=== PATIENT | male | born 1965 | race African-American/Black ===

== ENCOUNTER → 2016-11-12 | Outpatient (CLI) | payer OTHER ==
[~2016-11-12] MED LIST: ARTISOL2 OU; BUME1TA PO; BUPR150T3 PO; CARD180C4 PO; CARV25TA PO; COLC1TAB13 PO; GLUC750T2 PO; LIPI80TA PO; MEPR750S PO; OMEP20CA3 PO; POTA10CA PO; PRAD150C PO; PRED5TA PO; SERT-155 PO; TRAZ-136 PO; ZOLO100T PO
--- NOTE | 2016-11-12 08:15 | REP ---
Clinical: Right upper quadrant abdominal pain. Technique: Barclay scale ultrasound using curved array transducer. Findings: The liver is upper limits of normal in size without obvious focal hepatic lesion identified. The pancreas is incompletely evaluated due to interposed bowel gas but visualized portions appear normal. The gallbladder is normal without gallstones, wall thickening or pericholecystic fluid. No biliary ductal dilatation is appreciated, and the common bile duct measures 6.4 mm diameter. The right kidney measures 10.7 x 7.5 x 4.7 cm without hydronephrosis, but small intrarenal calculi cannot be excluded. No ascites. Visualized portions of the abdominal aorta normal. Impression: 1. Liver appears upper limits of normal in size without focal hepatic lesion identified. 2. Cannot exclude nonobstructing right renal calculi. Signed by Bladimir Watts MD 11/12/2016 08:06 A
--- NOTE | 2016-11-12 11:00 | REP ---
HIDA SCAN WITH GALLBLADDER EJECTION FRACTION: Following the intravenous administration of 6.6 millicuries technetium 99m mebrofenin, multiple images of the right upper quadrant are performed every 5 minutes for a period of 1 hour. The gallbladder is visualized at 20 minutes post injection. There is biliary to bowel transit by 15 minutes post injection. There is no scintigraphic evidence of cholecystitis. 8 ounces of Ensure Enlive was ingested and further imaging performed for 1 hour. Gallbladder activity is measured. Gallbladder ejection fraction is calculated to be 41%. This is normal, as a normal ejection fraction is greater than 35%. IMPRESSION: Normal gallbladder ejection fraction. Signed by Mane Barclay MD 11/12/2016 07:50 P
== END ==
LOC: M RAD 07:27
PROVIDERS: ATTEND Physician Assistant Medical
DX: R10.11 Right upper quadrant pain (principal)

== ENCOUNTER 2016-11-20 08:43 | Outpatient (CLI) | payer OTHER ==
[~2016-11-20] VITALS: Ht 185.4 cm; Wt 104.3 kg
[2016-11-20] MEDS ORDERED: NS 1,000 ML IV ONE (09:15)
[2016-11-20] MEDS ORDERED: LIDOCAINE 2% INJ 100 MG/5 ML SDV (FOR ANES.) As Ordered ONE (10:06)
[2016-11-20] MEDS ORDERED: PROPOFOL 200 MG/20 ML VIAL As Ordered ONE (10:06)
--- NOTE | 2016-11-20 10:24 | ROOR ---
Patient Name: Artur Coyne Procedure Date: 11/20/2016 10:07 AM Date of : 1965 Age: 51 Room: [facility] Gender: Male Note Status: Finalized Procedure: Upper GI endoscopy Indications: Abdominal pain Providers: Nando MONTELONGO MD Referring MD: WALE ECHEVARRIA MD Requesting Provider: Medicines: Monitored Anesthesia Care Complications: No immediate complications. Procedure: Pre-Anesthesia Assessment: - The heart rate, respiratory rate, oxygen saturations, blood pressure, adequacy of pulmonary ventilation, and response to care were monitored throughout the procedure. The Endoscope was introduced through the mouth, and advanced to the second part of duodenum. The upper GI endoscopy was accomplished without difficulty. The patient tolerated the procedure well. Findings: Non-severe esophagitis was found in the lower third of the esophagus. Biopsies were taken with a cold forceps for histology. Minimal inflammation was found in the entire examined stomach. Biopsies were taken with a cold forceps for Helicobacter pylori testing. The examined duodenum was normal. Impression: - Mild reflux esophagitis. Biopsied. - Mild Gastritis. Biopsied. - Small Hiatal hernia - Normal examined duodenum. Recommendation: - Use Prilosec (omeprazole) 20 mg PO daily. - (the script was sent to your pharmacy on file) - Telephone endoscopist for pathology results in 2 weeks. Nando Montelongo MD Nando MONTELONGO MD 11/20/2016 10:24:34 AM This report has been signed electronically. Number of Addenda: 0 Note Initiated On: 11/20/2016 10:07 AM Estimated Blood Loss: Estimated blood loss: none.
--- NOTE | 2016-11-20 10:43 | ROOR ---
Patient Name: Artur Coyne Procedure Date: 11/20/2016 10:08 AM Date of : 1965 Age: 51 Room: [facility] Gender: Male Note Status: Finalized Procedure: Colonoscopy Indications: Generalized abdominal pain Providers: Nando MONTELONGO MD Referring MD: WALE ECHEVARRIA MD Requesting Provider: Medicines: Monitored Anesthesia Care Complications: No immediate complications. Procedure: Pre-Anesthesia Assessment: - The heart rate, respiratory rate, oxygen saturations, blood pressure, adequacy of pulmonary ventilation, and response to care were monitored throughout the procedure. The Colonoscope was introduced through the anus and advanced to the terminal ileum, with identification of the appendiceal orifice and IC valve. The colonoscopy was performed without difficulty. The patient tolerated the procedure well. The quality of the bowel preparation was good. Findings: The perianal and digital rectal examinations were normal. A 3 mm polyp was found in the cecum. The polyp was sessile. The polyp was removed with a jumbo cold forceps. Resection and retrieval were complete. Internal hemorrhoids were found during retroflexion. The hemorrhoids were moderate. The exam was otherwise without abnormality on direct and retroflexion views. The terminal ileum appeared normal. Impression: - One 3 mm polyp in the cecum, removed with a jumbo cold forceps. Resected and retrieved. - Small to moderate Internal hemorrhoids. - The colon examination was otherwise normal on direct and retroflexion views. - The examined portion of the ileum was normal. Recommendation: - Use fiber, for example Citrucel, Fibercon, Konsyl or Metamucil. - Continue present medications. - Telephone endoscopist for pathology results in 2 weeks. - If the pathology report reveals adenomatous tissue, then repeat the colonoscopy for surveillance in 5 years. - Resume Pradaxa (dabigatran) at prior dose today. Nando Montelongo MD Nando MONTELONGO MD 11/20/2016 10:42:31 AM This report has been signed electronically. Number of Addenda: 0 Note Initiated On: 11/20/2016 10:08 AM Estimated Blood Loss: Estimated blood loss: none.
[2016-11-20 11:00] VITALS: BP 115/81
== END 2016-11-20 11:15 | disposition home or self-care (01) ==
LOC: M OPP 08:43
PROVIDERS: ATTEND Internal Medicine Gastroenterology
DX: R10.84 Generalized abdominal pain (principal); D12.0 Benign neoplasm of cecum; K64.8 Other hemorrhoids; K21.0 Gastro-esophageal reflux disease with esophagitis; K29.70 Gastritis, unspecified, without bleeding; K59.00 Constipation, unspecified; I48.91 Unspecified atrial fibrillation; Z95.810 Presence of automatic (implantable) cardiac defibrillator; I10 Essential (primary) hypertension; E78.5 Hyperlipidemia, unspecified; R12 Heartburn; M19.90 Unspecified osteoarthritis, unspecified site; M54.9 Dorsalgia, unspecified; R51 Headache; R06.02 Shortness of breath; G47.30 Sleep apnea, unspecified; D86.9 Sarcoidosis, unspecified; Z88.8 Allergy status to other drugs, medicaments and biological substances; Z79.899 Other long term (current) drug therapy; Z79.52 Long term (current) use of systemic steroids

== ENCOUNTER → 2017-09-01 | Outpatient (CLI) | payer OTHER | LOC: M CARPUL 09:39 | DX: D86.89 Sarcoidosis of other sites (principal); I50.9 Heart failure, unspecified; I34.0 Nonrheumatic mitral (valve) insufficiency | CPT/HCPCS: 93306 ==

== ENCOUNTER 2017-11-20 18:55 | Emergency (ER) | payer OTHER | END 2017-11-20 20:55 | disposition home or self-care (01) | LOC: M ED 18:55 | DX: S63.92XA Sprain of unspecified part of left wrist and hand, initial encounter (principal); W11.XXXA Fall on and from ladder, initial encounter; Y92.009 Unspecified place in unspecified non-institutional (private) residence as the place of occurrence of the external cause; Z88.8 Allergy status to other drugs, medicaments and biological substances; Z79.899 Other long term (current) drug therapy; Z98.890 Other specified postprocedural states | CPT/HCPCS: 73110 ==

== ENCOUNTER 2017-12-30 11:18 | Emergency (ER) | payer OTHER, SELFPAY ==
[~2017-12-30] VITALS: Ht 185.4 cm; Wt 96.0 kg
[~2017-12-30 11:18] MED LIST changes: -BUME1TA PO; +BUME1TAB3 PO; +GLUC750T13 PO; -GLUC750T2 PO; +KLOR10TA76 PO; -POTA10CA PO; -TRAZ-136 PO; +TRAZ-163 PO; +ZOLP10TA2
[2017-12-30] MEDS ORDERED: ALLO10TA PO (11:34)
[2017-12-30 12:14] LABS: BASO # 0.1 10^3/uL (0.0-0.2); BASO % 0.4 % (0.0-1.0); EOS # 0.1 10^3/uL (0.0-0.50); EOS % 0.6 % (0.0-3.0); HEMATOCRIT 39.5 % (42.0-52.0); HEMOGLOBIN 12.8 g/dl (13.5-17.5); LYMPH # 2.2 10^3/uL (1.5-4.5); LYMPH % 14.3 % (24.0-44.0); MEAN CORPUSCULAR HEMOGLOBIN 28.1 pg (27.0-33.0); MEAN CORPUSCULAR HGB CONC 32.4 g/dl (32.0-36.5); MEAN CORPUSCULAR VOLUME 86.8 fl (80.0-96.0); MONO # 1.7 10^3/uL (0.0-0.8); MONO % 10.6 % (0.0-5.0); NEUTROPHILS # 11.5 10^3/uL (1.8-7.7); NEUTROPHILS % 73.6 % (36.0-66.0); PLATELET COUNT, AUTOMATED 166 10^3/uL (150-450); RED BLOOD COUNT 4.55 10^6/uL (4.30-6.10); WHITE BLOOD COUNT 15.6 10^3/uL (4.0-10.0)
--- NOTE | 2017-12-30 12:23 | REP ---
Right elbow series: Four views. History: Swelling. Findings: Four views of the right elbow demonstrate marked brad olecranon soft tissue swelling consistent with bursitis. There is some olecranon spurring. There is no evidence of joint effusion. No fracture or bony erosive change. Impression: Marked swelling about the olecranon. Question olecranon bursitis. Mild olecranon spurring. No other bony abnormality. No evidence of joint effusion. Electronically Signed by Brady Kaur MD 12/30/2017 12:14 P
[2017-12-30 12:48] LABS: BLOOD UREA NITROGEN 13 MG/DL (7-18); C REACTIVE PROTEIN QUANTITATIV 7.24 MG/DL (0.00-0.30); CALCIUM LEVEL 8.7 MG/DL (8.5-10.1); CARBON DIOXIDE LEVEL 29 MEQ/L (21-32); CHLORIDE LEVEL 105 MEQ/L (98-107); CREATININE FOR GFR 1.16 MG/DL (0.70-1.30); GLOMERULAR FILTRATION RATE > 60.0 (>56); GLUCOSE, FASTING 93 MG/DL (70-100); POTASSIUM SERUM 3.8 MEQ/L (3.5-5.1); SODIUM LEVEL 141 MEQ/L (136-145); URIC ACID 3.6 MG/DL (3.5-7.2)
[2017-12-30 13:15] LABS: ERYTHROCYTE SEDIMENTATION RATE 55 mm/hr (0-20)
[2017-12-30] MEDS ORDERED: KEFL500C17 PO (13:24)
[2017-12-30] MEDS ORDERED: CEPHALEXIN 500 MG CAP PO ONE (13:30)
[2017-12-30] MEDS ORDERED: NORCOTAB PO (13:30)
[2017-12-30 14:15] VITALS: BP 122/85
== END 2017-12-30 14:16 | disposition home or self-care (01) ==
LOC: M ED 11:18
DX: M25.721 Osteophyte, right elbow (principal); M70.20 Olecranon bursitis, unspecified elbow; Z79.899 Other long term (current) drug therapy; Z88.8 Allergy status to other drugs, medicaments and biological substances

== ENCOUNTER → 2019-07-26 | Outpatient (CLI) | payer OTHER ==
[~2019-07-26] MED LIST changes: +ALLO10TA PO; +HYDR-3715 PO; +KEFL500C17 PO; +OMEP1CAP73 PO; -OMEP20CA3 PO; -PRAD150C PO; +PRAD150C6 PO; -SERT-155 PO; +SERT50TA29 PO; -TRAZ-163 PO; +TRAZ-257 PO
--- NOTE | 2019-07-27 08:41 | REP ---
Clinical: History of chronic medical renal disease. Technique: Real time petty scale and color evaluation using curved array transducer. Findings: The bilateral kidneys are normal in contour, size, echogenicity, and reniform shape. Normal general renal vasculature noted bilaterally. No hydronephrosis, nephrolithiasis, cystic or renal mass lesion. Right kidney measures 8.8 x 5.9 x 4.0 cm. Left kidney measures 10.5 x 6.5 x 5.1 cm. Bladder appears grossly unremarkable. Impression: Normal renal ultrasound.
== END ==
LOC: M WHC 13:07
PROVIDERS: ATTEND Internal Medicine
DX: N18.9 Chronic kidney disease, unspecified (principal)

== ENCOUNTER → 2020-07-04 | Outpatient (CLI) | payer OTHER ==
[~2020-07-04] MED LIST changes: +BUPR150T12 PO; -BUPR150T3 PO; +COLC0.6T47 PO; -COLC1TAB13 PO
--- NOTE | 2020-07-08 09:55 | ECHO ---
DATE OF PROCEDURE: 07/04/2020 Age: 55 Gender: Male REFERRING PHYSICIAN: John Elizondo M.D. PATIENT LOCATION: Outpatient. REASON FOR STUDY: Sarcoidosis. 2D MEASUREMENTS: IVS 1.1 cm LV 4.6 cm LVPW 1.1 cm LA 4.0 cm Aorta 3.5 cm DOPPLER MEASUREMENT Peak velocity across the LVOT 0.85 m/s Mitral E 0.42 Mitral A 0.2 with a ratio of 1.6 2D COMMENTS: 1. Normal left ventricular size, wall thickness, and normal global left ventricular systolic function. The estimated left ventricular systolic ejection fraction is 60% to 65%. 2. Borderline enlarged left atrium. Normal right atrium and right ventricle. 3. The atrial septum appeared to be normal without evidence of defect or shunt. 4. Normal aortic root. 5. No pericardial effusion seen. 6. Minimally calcified aortic valve with normal leaflet excursion. Mildly calcified mitral annulus with normal anterior mitral valve leaflet motion. Normal tricuspid valve and pulmonic valve. The proximal pulmonary artery branches were not well visualized. 7. The inferior vena cava was not visualized. DOPPLER: Detects trace aortic regurgitation, trace mitral regurgitation, trace tricuspid regurgitation, and trace pulmonic regurgitation. Assessment of the left ventricular diastolic function appeared to be normal. IMPRESSION: 1. Normal global left ventricular systolic and diastolic function. 2. Aortic valve sclerosis with trace aortic regurgitation. 3. Mitral annular calcification with trace mitral regurgitation and a borderline enlarged left atrium. 4. Trace tricuspid regurgitation. 5. Trace pulmonic regurgitation. 6. Global longitudinal strain/GLS was calculated at -19.3%. 7. 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 [facility]
== END ==
LOC: M CARPUL 07:36
PROVIDERS: ATTEND Internal Medicine
DX: D86.9 Sarcoidosis, unspecified (principal); Z95.0 Presence of cardiac pacemaker

== ENCOUNTER → 2022-01-30 | Outpatient (CLI) | payer OTHER ==
[~2022-01-30] MED LIST changes: -KLOR10TA76 PO; +POTA-136 PO
== END ==
LOC: M SOG 08:21
PROVIDERS: ATTEND Orthopaedic Surgery Adult Reconstructive Orthopaedic Surgery
DX: M25.561 Pain in right knee (principal); M25.562 Pain in left knee; Z53.9 Procedure and treatment not carried out, unspecified reason

== ENCOUNTER → 2022-03-05 | Outpatient (CLI) | payer OTHER | LOC: M SOG 08:01 | PROVIDERS: ATTEND Orthopaedic Surgery Adult Reconstructive Orthopaedic Surgery | DX: M25.561 Pain in right knee (principal); M25.562 Pain in left knee; Z53.9 Procedure and treatment not carried out, unspecified reason ==

== ENCOUNTER → 2024-01-05 | Outpatient (CLI) | payer OTHER ==
[~2024-01-05] MED LIST changes: +ATOR-398 PO; -LIPI80TA PO
== END ==
LOC: M SLEEP 20:00
PROVIDERS: ATTEND Internal Medicine
DX: G47.33 Obstructive sleep apnea (adult) (pediatric) (principal)